=== PATIENT | female | born 1945 | race Caucasian/White ===

== ENCOUNTER 2022-12-01 13:23 | Emergency (ER) | payer OTHER ==
[~2022-12-01] VITALS: Ht 162.6 cm; Wt 72.1 kg
[2022-12-01 13:26] VITALS: BP 153/83
--- NOTE | 2022-12-01 16:25 | NUR ---
DR CANO AT BEDSIDE.
[2022-12-01] MEDS ORDERED: NACL 0.9% 1,000 ML IV ONE (16:30)
[2022-12-01] MEDS ORDERED: MECLIZINE 25 MG TAB PO ONE (16:30)
--- NOTE | 2022-12-01 16:30 | NUR ---
77F BROUGHT TO ED VIA W/C WITH C/O NAUSEA SINCE YESTERDAY, DENIES VOMITING. PMH:PARKINSONS, 2 STROKES, HTN ALLERGIES:DENIES
--- NOTE | 2022-12-01 16:36 | NUR ---
Ty amaro in [facility] - 12/01/22 at 1638 by [email or web address] AT BEDSIDE.
[2022-12-01] MEDS ORDERED: ACETAMINOPHEN EXTRA STRENGTH 500 MG TAB PO ONE (16:40)
[2022-12-01 17:04] LABS: BASOPHILS % (AUTO) 0.6 % (0.0-2.0); EOSINOPHILS # (AUTO) 0.1 K/uL (0-0.4); EOSINOPHILS % (AUTO) 1.1 % (0.0-4.0); HEMATOCRIT 38.3 % (36-48); HEMOGLOBIN 12.2 g/dL (12.0-16.0); LYMPHOCYTES # (AUTO) 1.9 K/uL (2.5-16.5); LYMPHOCYTES % (AUTO) 24.9 % (20.5-51.1); MEAN CORPUSCULAR HEMOGLOBIN 20 pg (27-31); MEAN CORPUSCULAR HGB CONC 32 g/dL (33-37); MEAN CORPUSCULAR VOLUME 61.3 fL (80-94); MONOCYTES # (AUTO) 0.8 K/uL (0.8-1.0); MONOCYTES % (AUTO) 10.2 % (1.7-9.3); NEUTROPHILS # (AUTO) 4.9 K/uL (1.8-7.7); NEUTROPHILS % (AUTO) 63.2 % (42.2-75.2); PLATELET COUNT (AUTO) 218 K/uL (140-450); RED BLOOD CELL COUNT(AUTO) 6.24 MIL/uL (4.20-5.40); RED CELL DISTRIBUTION WIDTH 16.6 % (11.6-13.7); WHITE BLOOD COUNT (AUTO) 7.8 K/uL (4.8-10.8)
[2022-12-01 17:33] LABS: ALBUMIN 4.3 g/dL (3.4-5.0); ANION GAP 11.4 (8-16); ASPARTATE AMINOTRANSFERASE 30 U/L (15-37); CARBON DIOXIDE 28.2 mmol/L (21-32); CHLORIDE 95 mmol/L (98-107); CREATININE 0.6 mg/dL (0.6-1.3); GLUCOSE 113 mg/dL (74-106); MAGNESIUM 1.7 mg/dL (1.8-2.4); POTASSIUM 3.6 mmol/L (3.5-5.1); SODIUM SERUM 131 mmol/L (136-145); THYROID STIMULATING HORMONE 0.48 uIU/mL (0.34-3.74); TOTAL BILIRUBIN 1.3 mg/dL (0.0-1.0); UREA NITROGEN, BLOOD 12 mg/dL (7-18)
[2022-12-01] MEDS ORDERED: diphenhydrAMINE 50 MG/ML VIAL IVP ONE (17:35)
[2022-12-01] MEDS ORDERED: KETOROLAC 15 MG/ML VIAL IVP ONE (17:35)
[2022-12-01] MEDS ORDERED: METOCLOPRAMIDE 10 MG/2 ML INJ VIAL IVP ONE (17:35)
[2022-12-01] MEDS ORDERED: MAG SULF 2000 MG/WATER PREMIX 50 ML IV ONE (17:40)
--- NOTE | 2022-12-01 18:45 | NUR ---
Pt ambulated with a steady gait to bathroom to provide urine sample
[2022-12-01 19:01] LABS: APPEARANCE,URINE CLEAR (CLEAR); BILIRUBIN,URINE NEGATIVE (NEGATIVE); BLOOD, URINE NEGATIVE (NEGATIVE); COLOR,URINE YELLOW (YELLOW); LEUKOCYTE ESTERASE ,URINE NEGATIVE (NEGATIVE); NITRITE, URINE NEGATIVE (NEGATIVE); UGLUCOSE NEGATIVE (NEGATIVE)
[2022-12-01] MEDS ORDERED: ACET-10509 PO (19:09)
[2022-12-01] MEDS ORDERED: MECL-303 PO (19:09)
[2022-12-01] MEDS ORDERED: FAMO20TA13 PO (19:09)
--- NOTE | 2022-12-01 19:11 | NUR ---
Pt report given to BRUCE Renee. Transfer of care at this time.
[2022-12-01 19:36] VITALS: BP 128/75
== END 2022-12-01 19:31 | disposition home or self-care (01) ==
LOC: MED 13:23
DX: R42 Dizziness and giddiness (principal); R51.9 Headache, unspecified; Z86.73 Personal history of transient ischemic attack (TIA), and cerebral infarction without residual deficits
CPT/HCPCS: 36415; 70450; 80053; 81003; 83735; 84443; 84484; 85025; 93005; 96361; 96365; 96366; 96375; 99285; J1200; J1885; J2765; J3475; J7030; J8597